=== PATIENT | female | born 1980 | race American Indian/Alaskan Native ===

== ENCOUNTER 2024-12-27 11:15 | Outpatient (CLI) | payer MEDICAID ==
--- NOTE | 2024-12-27 12:26 | RADIOLOGY REPORT ---
MRI BRAIN WITHOUT CONTRAST CLINICAL HISTORY: DIZZINESS AND GIDDINESS,OTH SYMPTOMS AND SIGNS INVOLVING THE MUSCULOSKELETA TECHNIQUE: Multiplanar, multisequence MR images of the brain without intravenous contrast. Comparison: None FINDINGS: There is no restricted diffusion. The urbano and white matter signal is appropriate. There is no eviden ce of hemorrhage, mass, mass effect or midline shift. There is no hydrocephalus or extra-axial fluid collection. The visualized intracranial vasculature demonstrates appropriate flow-voids. There is no gross evidence of an IAC or CP angle lesion. The sagittal midline structures appear unremarkable. The craniocervical junction is within normal limits. The calvarium demonstrates normal marrow signal. Th ere is small amount of fluid in the right mastoid air cells. The left mastoid air cells and paranasal sinuses are clear. IMPRESSION: 1. There is no acute intracranial process. 2. Small amount of fluid in the right mastoid air cells. HS:Y
== END 2024-12-27 23:59 | disposition home or self-care (01) ==
LOC: MRI02 11:15
PROVIDERS: ATTEND Nurse Practitioner Adult Health
DX: R42 Dizziness and giddiness (principal); M47.812 Spondylosis without myelopathy or radiculopathy, cervical region; R29.898 Other symptoms and signs involving the musculoskeletal system; M54.2 Cervicalgia
CPT/HCPCS: 70551